=== PATIENT | female | born 1955 | race Caucasian/White ===

== ENCOUNTER 2018-10-08 19:05 | Inpatient (IN) | payer MEDICARE ==
[~2018-10-08] VITALS: Ht 162.6 cm; Wt 58.1 kg
--- NOTE | 2018-10-08 19:30 | NUR ---
GPS-BEHAVIOUR SUPPORT TEACHER NOTES: ADMITTED A 62 YR-OLD FEMALE FROM [facility]. ADMITTED ON 5150 FOR DTS. PER HOLD, PATIENT HAS OVERDOSED ON HER MEDICATIONS AND LEFT A SUICIDE NOTE. PT. STATED "I HAVE BEEN DEPRESSED SINCE I WAS 18 Y/O. I WANTED TO . I WANTED TO BE WITH MY DOG" UPON FACE TO FACE ASSESSMENT, PATIENT IS ALERT, ORIENTED X3, CALM, COOPERATIVE WITH CARE, DEPRESSED MOOD, AMBULATES WITH WALKER. DENIES SI/HI OR HALLUCINATIONS AT THIS TIME. IN NO APPARENT DISTRESS NOTED. NO C/O PAIN OR DISCOMFORT AT THIS TIME. BELONGINGS WERE INVENTORIED AND CHECKED FOR CONTRABAND. PT. IS UNDER THE PSYCHIATRIC CARE OF DR. CHAHAL ORDERS OBTAINED, AND UNDER THE MEDICAL CARE OF DR. ARZATE, [facility], SPOKE WITH DR. GONZALEZ NOTIFIED OF THE ADMISSION AND MEDS TO RECONCILE. SKIN ASSESSMENT DONE. BED LOCKED AND PLACED ON LOWEST POSITION TO MAINTAIN SAFETY. FALL PRECAUTIONS IMPLEMENTED. WILL CONTINUE TO MONITOR Q15 MINS. FOR SAFETY AND BEHAVIOR.
[2018-10-08 20:00] VITALS: BP_SYST 130; BP_SYST 150; BP_DIAS 72
[2018-10-08 20:10] VITALS: BP 130/72
[2018-10-08] MEDS ORDERED: MAG HYDROX/AL HYDROX/SIMETH 30 ML UDC PO PRN (21:00)
[2018-10-08] MEDS ORDERED: ACETAMINOPHEN 325 MG TABLET PO PRN (21:00)
[2018-10-08] MEDS ORDERED: LORAZEPAM 1 MG TABLET PO PRN (21:00)
[2018-10-08] MEDS ORDERED: BETA1BEA PO (21:05)
[2018-10-08] MEDS ORDERED: BETA10003 PO (21:11)
[2018-10-08] MEDS ORDERED: CALC-903 PO (21:14)
[2018-10-08] MEDS ORDERED: ESCI10TA PO (21:15)
[2018-10-08] MEDS ORDERED: ASCO1TAB13 PO (21:17)
[2018-10-08] MEDS ORDERED: EVEP1CAP PO (21:19)
[2018-10-08] MEDS ORDERED: FAMO20TA8 PO (21:20)
[2018-10-08] MEDS ORDERED: FLAX100031 PO (21:22)
[2018-10-08] MEDS ORDERED: MAGN400T6 PO (21:25)
[2018-10-08] MEDS ORDERED: [UNRECOGNIZED DRUG - CODE] PO (21:27)
[2018-10-08] MEDS ORDERED: CHOL200026 PO (21:28)
[2018-10-08] MEDS ORDERED: DICL100G16 TP (21:35)
[2018-10-08] MEDS ORDERED: ZINC50TA65 PO (21:36)
[2018-10-08] MEDS ORDERED: BISA-79 PR (21:39)
[2018-10-08] MEDS ORDERED: DIAZ5TAB4 PO (21:40)
[2018-10-08] MEDS ORDERED: DIPH25CA83 PO (21:42)
[2018-10-08] MEDS ORDERED: IBUP-1957 PO (21:44)
[2018-10-08] MEDS ORDERED: TRAM50TA2 PO (21:45)
[2018-10-08] MEDS ORDERED: VIT1TABL81 PO (21:51)
[2018-10-08] MEDS ORDERED: HYDR453.3 TP (21:53)
[2018-10-08] MEDS ORDERED: LORAZEPAM 0.5 MG TABLET PO PRN (22:00)
[2018-10-09] MEDS: TEMAZEPAM 7.5 MG CAPSULE PO PRN (01:23)
--- NOTE | 2018-10-09 05:44 | NUR ---
GPS RN NOTE, PATIENT HAS A COMPLAINT OF LOWER BACK PAIN AT 8 OUT 10 ON THE PAIN SCALE AND IS REQUESTING TRAMADOL AT THIS TIME. PAGED [facility] AND INFORMED DR ESCOTO OF MY FINDINGS. DR ECSOTO ORDERED TO GIVE TRAMADOL 50 MG PO Q8HR PRN. ALL ORDERS NOTED AND CARRIED OUT. WILL CONTINUE TO MONITOR THIS PATIENT.
[2018-10-09] MEDS ORDERED: TRAMADOL HCL 50 MG TABLET PO PRN (06:00)
[2018-10-09] MEDS ORDERED: IBUPROFEN 800 MG TABLET PO PRN (06:00)
[2018-10-09 08:00] VITALS: BP 133/59
[2018-10-09 08:02] LABS: BASOPHILS # (AUTO) 0.1 /CMM (0.0-0.2); BASOPHILS % (AUTO) 1.4 % (0.0-2.0); EOSINOPHILS % (AUTO) 3.9 % (0.0-6.0); HEMATOCRIT 28 % (33-45); HEMOGLOBIN 9.5 g/dL (11.5-14.8); LYMPHOCYTES # (AUTO) 1.5 /CMM (0.8-4.8); LYMPHOCYTES % (AUTO) 28.9 % (20.0-44.0); MEAN CORPUSCULAR HGB CONC 34 g/dl (31.0-36.0); MEAN CORPUSCULAR VOLUME 82 fL (82-100); MONOCYTES # (AUTO) 0.4 /CMM (0.1-1.30); MONOCYTES % (AUTO) 7.8 % (2.0-12.0); PLATELET COUNT (AUTO) 425 /CMM (150-450); RED BLOOD CELL COUNT(AUTO) 3.44 MIL/uL (4.0-5.2); WHITE BLOOD COUNT (AUTO) 5.1 K/uL (4.3-11.0)
[2018-10-09 08:14] LABS: BILIRUBIN,TOTAL 0.3 mg/dL (0.2-1.0); CREATININE 0.6 mg/dL (0.6-1.3); TOTAL PROTEIN, SERUM 6.1 g/dL (6.4-8.2)
[2018-10-09] MEDS ORDERED: Medication Not On Formulary EA (Zinc Amino Acid Chelate (Zinc) 50 MG) PO SCH (09:00)
[2018-10-09] MEDS ORDERED: METHYLSULFONYLMETHANE PO SCH (09:00)
[2018-10-09] MEDS: CALCIUM CARBONATE (1250) 500 MG TABLET PO SCH (09:28)
[2018-10-09] MEDS: FAMOTIDINE (20 MG) 20 MG TABLET PO SCH ×2 (09:28→17:19)
--- NOTE | 2018-10-09 09:34 | NUR ---
WOUND CARE CONSULT: PT PRESENTS WITH RASH TO INNER THIGHS, PERINEAL AND GROIN AREAS, WELL BRUISES TO LEFT FACE AND EXTREMITIES, PRESENT ON ADMISSION. RECOMMENDATIONS MADE FOR SKIN CARE AND PROTECTION. DISCUSSED WITH NURSING STAFF. PT IS AMBULATORY AND CONTINENT. WILL SEE PRN. CURRENT MARTINA SCORE IS 19. MD IN AGREEMENT WITH PLAN OF CARE. Addendum: 10/09/18 at 0936 by CALEB WOMACK WNDNU Amended: Links added.
[2018-10-09] MEDS ORDERED: Z GUARD REMEDY 2 OZ OINT TP PRN (10:00)
[2018-10-09] MEDS: IBUPROFEN 400 MG TABLET PO PRN (10:17)
[2018-10-09] MEDS: CHOLECALCIFEROL 1,000 UNIT TABLET (VIT D3) PO SCH (11:04)
[2018-10-09] MEDS: CLOTRIMAZOLE 1% 15 GM TUBE TP SCH ×2 (11:04→17:25)
[2018-10-09] MEDS: Z GUARD REMEDY 2 OZ OINT TP SCH (11:05)
--- NOTE | 2018-10-09 11:40 | NUR ---
SW called the pt's , Kunal ([phone]), and informed him that the SW would like to discuss the discharge plan. The SW stated that she would like to set the pt up with outpatient services in terms of therapy or psychiatry so that the pt can have that extra support. Pt's agreed and stated that the pt would benefit from that. SW stated that she would provide the pt's with updates.
--- NOTE | 2018-10-09 12:37 | NUR ---
Initial Discharge Plan: Pt currently resides in her home with her located at [address] [place] [address], [place] [address]; ([phone]). Per pt, she would like to return to her home and her , Kunal ([phone]), stated that she does have a support system in place. PAULETTE will work with the pt and the MD regarding appropriate discharge planning. SW will form a safe and proper discharge plan.
[2018-10-09] MEDS: TRAMADOL HCL 50 MG TABLET PO PRN ×2 (14:05→21:53)
[2018-10-09 16:00] VITALS: BP 153/79
[2018-10-09 20:00] VITALS: BP 135/84
--- NOTE | 2018-10-09 20:44 | NUR ---
GPS/RN DR. CHAHAL IS HERE SPOKE TO THE PATIENT.
--- NOTE | 2018-10-09 21:00 | NUR ---
GPS RN NOTE, PATIENT HAS A COMPLAINT THAT SHE WOULD LIKE TO START TAKING GABAPENTIN 100MG PO TID FOR HER FIBROMYALGIA. PAGED [facility] AND INFORMED DR ESCOTO OF MY FINDINGS. DR ESCOTO INSTRUCTED ME TO ENDORSE THIS COMPLAINT TO AM SHIFT NURSE AND AM SHIFT ROUNDING MEDICAL DOCTOR. WILL CONTINUE TO MONITOR THIS PATIENT.
[2018-10-09] MEDS: TRAZODONE 50 MG TABLET PO SCH (21:49)
[2018-10-09] MEDS: BISACODYL (5 MG) 5 MG TABLET.DR PO PRN (22:55)
[2018-10-10] MEDS ORDERED: GABA-532 PO (02:50)
[2018-10-10 08:00] VITALS: BP 112/69
[2018-10-10] MEDS: CALCIUM CARBONATE (1250) 500 MG TABLET PO SCH (08:20)
[2018-10-10] MEDS: CHOLECALCIFEROL 1,000 UNIT TABLET (VIT D3) PO SCH (08:20)
[2018-10-10] MEDS: FAMOTIDINE (20 MG) 20 MG TABLET PO SCH ×2 (08:20→17:05)
[2018-10-10] MEDS: CLOTRIMAZOLE 1% 15 GM TUBE TP SCH ×2 (08:21→17:26)
[2018-10-10] MEDS: MAGNESIUM OXIDE 400 MG TABLET PO SCH (08:22)
[2018-10-10] MEDS: TRAMADOL HCL 50 MG TABLET PO PRN ×2 (08:34→17:05)
[2018-10-10] MEDS: Z GUARD REMEDY 2 OZ OINT TP SCH (09:05)
--- NOTE | 2018-10-10 09:30 | NUR ---
Pt spoke to the SW and stated that she has concerns about her medical condition and that she would like to speak to the MD. SW stated that she would inform the nurses when her MD comes to the unit to speak to her at length and address her concerns.
[2018-10-10] MEDS: MAGNESIUM HYDROXIDE 30 ML UDC PO PRN (15:49)
[2018-10-10 16:00] VITALS: BP 136/91
[2018-10-10] MEDS: GABAPENTIN 100 MG CAPSULE PO SCH (17:05)
--- NOTE | 2018-10-10 19:55 | NUR ---
RN INITIAL NOTES: RECEIVED IN BED, A/O X3, CALM AND MED COMPLIANT, ON PAIN MEDS Q8HRS PRN, AMBULATES WITH WALKER, WOULD LIKE TO SPEAK WITH DR CHAHAL REGARDING TRAZODONE. PT DENIES ANY SI/HI. VS TAKEN AND RECORDED. SAFETY PRECAUTIONS FOR FALL INITIATED, BED BRAKES ENGAGED, SIDE RAILS UP X2, WILL CONTINUE TO MONITOR [id number] FOR SAFETY AND ANY CHANGES IN BEHAVIOR
[2018-10-10 20:00] VITALS: BP 125/78
--- NOTE | 2018-10-10 20:57 | NUR ---
RN NOTES: SEEN BY MD DR CHAHAL, ASK PT WOULD LIKE TO TALK ABOUT TRAZODONE, DISCUSSED ABOUT MEDICATION AT BED SIDE
[2018-10-10] MEDS: TRAZODONE 50 MG TABLET PO SCH (21:13)
[2018-10-10] MEDS: BISACODYL (5 MG) 5 MG TABLET.DR PO PRN (21:18)
--- NOTE | 2018-10-10 21:18 | NUR ---
prn dulcolax: pt c/o constipation requesting dulcolax, prn dulcolax 10 mg tab administered at this time
[2018-10-11] MEDS: TRAMADOL HCL 50 MG TABLET PO PRN ×3 (06:38→23:09)
--- NOTE | 2018-10-11 06:39 | NUR ---
PRN ULTRAM: PT C/O GENERALIZED PAIN 02/21 PS, REQUESTING FOR ULTRAM, PRN ULTRAM 50 MG TAB ADMINISTERED AT THIS TIME, WILL CONTINUE TO MONITOR AND REASSESS
[2018-10-11 08:00] VITALS: BP 107/59
[2018-10-11] MEDS: FAMOTIDINE (20 MG) 20 MG TABLET PO SCH ×2 (08:48→16:29)
[2018-10-11] MEDS: CALCIUM CARBONATE (1250) 500 MG TABLET PO SCH (08:48)
[2018-10-11] MEDS: CHOLECALCIFEROL 1,000 UNIT TABLET (VIT D3) PO SCH (08:48)
[2018-10-11] MEDS: GABAPENTIN 100 MG CAPSULE PO SCH ×3 (08:48→16:29)
[2018-10-11] MEDS: MAGNESIUM OXIDE 400 MG TABLET PO SCH (08:48)
[2018-10-11] MEDS: Z GUARD REMEDY 2 OZ OINT TP SCH (08:49)
[2018-10-11] MEDS: CLOTRIMAZOLE 1% 15 GM TUBE TP SCH ×2 (08:50→16:29)
[2018-10-11] MEDS: IBUPROFEN 400 MG TABLET PO PRN (09:26)
[2018-10-11 16:00] VITALS: BP 128/66
[2018-10-11] MEDS: MAGNESIUM HYDROXIDE 30 ML UDC PO PRN (16:29)
[2018-10-11 20:00] VITALS: BP 145/73
[2018-10-11] MEDS: TRAZODONE 50 MG TABLET PO SCH (21:14)
[2018-10-11] MEDS: BISACODYL (5 MG) 5 MG TABLET.DR PO PRN (21:49)
[2018-10-11] MEDS: TEMAZEPAM 7.5 MG CAPSULE PO PRN (22:43)
[2018-10-12 08:00] VITALS: BP 135/75
[2018-10-12] MEDS: CALCIUM CARBONATE (1250) 500 MG TABLET PO SCH (08:50)
[2018-10-12] MEDS: GABAPENTIN 100 MG CAPSULE PO SCH ×3 (08:50→17:39)
[2018-10-12] MEDS: TRAMADOL HCL 50 MG TABLET PO PRN ×2 (08:50→17:42)
[2018-10-12] MEDS: FAMOTIDINE (20 MG) 20 MG TABLET PO SCH ×2 (08:50→17:39)
[2018-10-12] MEDS: CHOLECALCIFEROL 1,000 UNIT TABLET (VIT D3) PO SCH (08:50)
[2018-10-12] MEDS: MAGNESIUM OXIDE 400 MG TABLET PO SCH (08:50)
[2018-10-12] MEDS: Z GUARD REMEDY 2 OZ OINT TP SCH (08:51)
[2018-10-12] MEDS: CLOTRIMAZOLE 1% 15 GM TUBE TP SCH ×2 (08:52→17:39)
[2018-10-12] MEDS ORDERED: BISACODYL SUPP (10 MG) 10 MG/SUPP.RECT SUPP.RECT RC PRN (12:30)
[2018-10-12] MEDS: IBUPROFEN 400 MG TABLET PO PRN (13:00)
[2018-10-12 16:00] VITALS: BP 115/73
[2018-10-12] MEDS: SAVELLA 50MG TAB PO SCH (17:39)
[2018-10-12 20:36] VITALS: BP 122/76
[2018-10-12] MEDS: TEMAZEPAM 7.5 MG CAPSULE PO PRN (20:49)
[2018-10-13] MEDS: TRAMADOL HCL 50 MG TABLET PO PRN ×2 (06:03→14:58)
[2018-10-13 08:00] VITALS: BP 132/69
[2018-10-13] MEDS: CHOLECALCIFEROL 1,000 UNIT TABLET (VIT D3) PO SCH (09:30)
[2018-10-13] MEDS: CALCIUM CARBONATE (1250) 500 MG TABLET PO SCH (09:31)
[2018-10-13] MEDS: FAMOTIDINE (20 MG) 20 MG TABLET PO SCH ×2 (09:31→16:33)
[2018-10-13] MEDS: CLOTRIMAZOLE 1% 15 GM TUBE TP SCH ×2 (09:31→16:34)
[2018-10-13] MEDS: Z GUARD REMEDY 2 OZ OINT TP SCH (09:31)
[2018-10-13] MEDS: GABAPENTIN 100 MG CAPSULE PO SCH ×3 (09:31→16:32)
[2018-10-13] MEDS: MAGNESIUM OXIDE 400 MG TABLET PO SCH (09:31)
[2018-10-13] MEDS: SAVELLA 50MG TAB PO SCH ×2 (10:49→16:33)
--- NOTE | 2018-10-13 14:32 | NUR ---
SW spoke to the pt regarding an outpatient program that could assist her with her psychiatric needs as well as her therapeutic needs. Pt stated that she has had trouble with many individuals in her support system such as her , her best friend, and her 's sisters. Pt stated that she did not want to take her life but she wanted people to care for her. SW stated that she made a serious attempt and therefore she needs to be evaluated for her safety. SW then explained the benefits of going to an outpatient program and the pt stated that she would accept a program.
--- NOTE | 2018-10-13 14:37 | NUR ---
PAULETTE faxed a referral to [facility] with attention to Darshana to the fax number: [phone].
[2018-10-13 16:00] VITALS: BP 128/58
[2018-10-13 20:13] VITALS: BP 118/69
[2018-10-13 20:18] VITALS: BP 118/69
[2018-10-13] MEDS ORDERED: MIRTAZAPINE 15 MG TABLET PO SCH (22:00)
[2018-10-14 08:00] VITALS: BP 112/59
[2018-10-14] MEDS: GABAPENTIN 100 MG CAPSULE PO SCH ×3 (09:32→17:36)
[2018-10-14] MEDS: CHOLECALCIFEROL 1,000 UNIT TABLET (VIT D3) PO SCH (09:32)
[2018-10-14] MEDS: CALCIUM CARBONATE (1250) 500 MG TABLET PO SCH (09:32)
[2018-10-14] MEDS: MAGNESIUM OXIDE 400 MG TABLET PO SCH (09:32)
[2018-10-14] MEDS: FAMOTIDINE (20 MG) 20 MG TABLET PO SCH ×2 (09:32→17:36)
[2018-10-14] MEDS: SAVELLA 50MG TAB PO SCH ×2 (09:33→17:36)
[2018-10-14] MEDS: Z GUARD REMEDY 2 OZ OINT TP SCH (09:35)
[2018-10-14] MEDS: CLOTRIMAZOLE 1% 15 GM TUBE TP SCH ×2 (09:35→17:37)
[2018-10-14] MEDS: IBUPROFEN 400 MG TABLET PO PRN ×2 (09:37→14:38)
--- NOTE | 2018-10-14 12:22 | NUR ---
SW conducted a substance abuse intervention with the pt due to her overdosing on her prescription medications.
--- NOTE | 2018-10-14 12:24 | NUR ---
SW spoke to the pt in her room about the [facility] and stated that the SW called the program and the director was not available so the SW was informed to call again. Pt began speaking to the SW about how she was not serious about the attempt that she made on her life and that the pt just wanted to get her 's attention and have him care for her appropriately. SW suggested that the pt and her receive marriage counseling together to work on their relationship issues.
--- NOTE | 2018-10-14 15:26 | NUR ---
PAULETTE called Darshana ([phone]) from the [facility] and she stated that the pt is accepted to the program once she is discharged.
[2018-10-14 16:00] VITALS: BP 136/57
[2018-10-14] MEDS: TRAMADOL HCL 50 MG TABLET PO PRN (17:57)
[2018-10-14] MEDS ORDERED: VOLTAREN TP PRN (18:00)
--- NOTE | 2018-10-14 19:54 | NUR ---
GPS/RN PER PATIENT TRAMADOL DID NOT HELP HER PAIN, HER PAIN IS STILL 10/10 AT THIS TIME AND ASKED FOR HER VOLTAREN GEL. MED WAS GIVEN, SHE APPLIED THE GEL HERSELF SHE KNOWS WHERE TO APPLY, SHE STATED. WILL MONITOR.
[2018-10-14 19:55] VITALS: BP 113/52
--- NOTE | 2018-10-14 20:05 | NUR ---
GPS RN NOTE, DR CHAHAL ON FLOOR AND IN PATIENT ROOM TO SEE PATIENT. PATIENT HAS A COMPLAINT THAT SHE WOULD LIKE TO TAKE TRAZODONE [address] CHAHAL INFORMED PATIENT THAT TRAZODONE AND SAVELLA INTERACT AND SHE WOULD NEED TO STOP TAKING SAVELLA 50 MG PO BID. PATIENT IS AGREEABLE AND STATES, " I WOULD RATHER TAKE TRAZODONE INSTEAD OF SAVELLA ". DR CHAHAL GAVE ORDER TO CALL MEDICAL MD AND TO HAVE SAVELLA 50 MG PO BID DISCONTINUED. PAGED [facility] AND INFORMED DR ARACELI FOLEY OF MY FINDINGS. DR ARACELI FOLEY ORDERED TO STOP SAVELLA 50MG PO BID AND ORDERED TO GIVE NORCO 5-325 1 TAB PO Q6HR PRN. ALL ORDERS NOTED AND CARRIED OUT. WILL CONTINUE TO MONITOR THIS PATIENT.
--- NOTE | 2018-10-14 20:40 | NUR ---
MS/RN PATIENT WAS SEEN BY DR. CHAHAL EARLIER AROUND 1954.
[2018-10-14] MEDS: TRAZODONE 50 MG TABLET PO SCH (21:15)
[2018-10-14] MEDS ORDERED: HOME MED MISCELLANEOUS XX PRN (21:30)
[2018-10-15] MEDS ORDERED: VOLTAREN TP PRN (05:00)
[2018-10-15] MEDS: TRAMADOL HCL 50 MG TABLET PO PRN ×3 (06:09→21:31)
[2018-10-15 08:00] VITALS: BP 124/60
[2018-10-15] MEDS: GABAPENTIN 100 MG CAPSULE PO SCH ×3 (08:23→16:22)
[2018-10-15] MEDS: CHOLECALCIFEROL 1,000 UNIT TABLET (VIT D3) PO SCH (08:23)
[2018-10-15] MEDS: MAGNESIUM OXIDE 400 MG TABLET PO SCH (08:23)
[2018-10-15] MEDS: CALCIUM CARBONATE (1250) 500 MG TABLET PO SCH (08:23)
[2018-10-15] MEDS: FAMOTIDINE (20 MG) 20 MG TABLET PO SCH ×2 (08:23→16:19)
[2018-10-15] MEDS: Z GUARD REMEDY 2 OZ OINT TP SCH (08:29)
[2018-10-15] MEDS: CLOTRIMAZOLE 1% 15 GM TUBE TP SCH ×2 (08:29→16:22)
[2018-10-15] MEDS: HYDROCODONE/APAP 5/325MG 1 EACH TABLET PO PRN ×2 (08:49→16:19)
--- NOTE | 2018-10-15 09:00 | NUR ---
GPS RN NOTE: PT COMPLAINING OF RIGHT HIP PAIN / NORCO 5/235 MG GIVEN PER ORDER, WILL CONTINUE MONITORING .
[2018-10-15] MEDS ORDERED: KETOROLAC TROMETHAMINE INJ 30 MG/ML VIAL IM PRN (10:00)
--- NOTE | 2018-10-15 11:25 | NUR ---
GPS RN NOTE: PT COMPLAINING OF RIGHT HIP PAIN 03/24 TORADOL INJ 15 MG PRN GIVEN PER ORDER, WILL CONTINUE MONITORING .
--- NOTE | 2018-10-15 14:53 | NUR ---
GPS/RN PER PATIENT C/O PAIN 8/10 TRAMADOL 50 MG PO GIVEN WILL CONTINUE MONITORING.
[2018-10-15 16:00] VITALS: BP 134/88
[2018-10-15 20:14] VITALS: BP 120/57
[2018-10-15] MEDS: TRAZODONE 50 MG TABLET PO SCH (21:31)
[2018-10-15] MEDS: TEMAZEPAM 7.5 MG CAPSULE PO PRN (21:32)
[2018-10-16 08:00] VITALS: BP 117/59
[2018-10-16] MEDS: CHOLECALCIFEROL 1,000 UNIT TABLET (VIT D3) PO SCH (08:56)
[2018-10-16] MEDS: GABAPENTIN 100 MG CAPSULE PO SCH ×3 (08:56→17:03)
[2018-10-16] MEDS: CALCIUM CARBONATE (1250) 500 MG TABLET PO SCH (08:56)
[2018-10-16] MEDS: FAMOTIDINE (20 MG) 20 MG TABLET PO SCH ×2 (08:56→17:03)
[2018-10-16] MEDS: CLOTRIMAZOLE 1% 15 GM TUBE TP SCH ×2 (08:57→17:03)
[2018-10-16] MEDS: Z GUARD REMEDY 2 OZ OINT TP SCH (08:57)
[2018-10-16] MEDS: MAGNESIUM OXIDE 400 MG TABLET PO SCH (09:01)
[2018-10-16] MEDS ORDERED: KETOROLAC TROMETHAMINE 15 MG/ML VIAL IM PRN (11:00)
--- NOTE | 2018-10-16 12:23 | NUR ---
PAULETTE called the pt's , Kunal ([phone]), and informed him that the pt is going to be discharged from the hospital today. He stated that he works 2 jobs and would not be able to pick the pt up until around 9:30PM. PAULETTE stated that was acceptable and stated she would plan the discharge accordingly.
--- NOTE | 2018-10-16 12:24 | NUR ---
PAULETTE called aDrshana ([phone]) from the [facility] and informed her that the pt is being discharged today and that she can start the program the following day. She stated that would be acceptable and that she would like the most recent discharge paperwork to be faxed over.
--- NOTE | 2018-10-16 12:28 | NUR ---
APULETTE faxed the discharge notes to [facility] with attention to Darshana to the fax number: [phone].
[2018-10-16] MEDS: HYDROCODONE/APAP 5/325MG 1 EACH TABLET PO PRN (14:05)
--- NOTE | 2018-10-16 15:27 | NUR ---
Discharge Note: Pt was discharged home located at [address] [facility], [address] [address]; ([phone]). Pt was picked up by the pts , Kunal ([phone]), at 9:30PM. On the afternoon of the pts discharge, she appeared to be in a euthymic mood and presented with a calm and pleasant affect. Pt denied both suicidal and homicidal ideation as well as both visual and auditory hallucinations. Pt was provided with three substance abuse referrals at the time of discharge. Pt was also referred to the [facility] where the pt will be under the care of her psychiatrist, Dr. Lai, located [address] [place] [address]; . She will start the program on Saturday, October 20 at 10AM. Pt will also be under the care of her quality engineer medical device, Dr. Margie Blanc, located at [address], [place] [address]; .
[2018-10-16 16:00] VITALS: BP 136/55
[2018-10-16] MEDS: IBUPROFEN 400 MG TABLET PO PRN (20:04)
--- NOTE | 2018-10-16 21:31 | NUR ---
DISCHARGE NOTES PT. DISCHARGE HOME WITH HER IN STABLE CONDITION, NO ACUTE DISTRESS NOTED, DENIES SI/ HI AT THIS TIME , PT. BEHAVIOR PLASENT, CALM COOPERTIVE TO GO HOME , PT. DISCHARGE WITH ALL BELONGING AND DISCHARGE PAPERS. PROVIDE ALL DISCHARGE INSTRUCTIONS, PT. VERBALIZED TO UNDERSTANDING , VITAL SIGNS WNL.PT. ACCOMPIENDE BY STAFF MEMEBER WITH WHEEL CHAIR TO LOBBY .
== END 2018-10-16 21:30 | disposition home or self-care (01) | DRG 885 ==
LOC: GPS 19:05
PROVIDERS: ADMIT Psychiatry & Neurology Psychiatry; ATTEND Psychiatry & Neurology Psychiatry
DX: F29 Unspecified psychosis not due to a substance or known physiological condition (principal); E44.1 Mild protein-calorie malnutrition; F41.9 Anxiety disorder, unspecified; T50.902D Poisoning by unspecified drugs, medicaments and biological substances, intentional self-harm, subsequent encounter; M79.7 Fibromyalgia; Z90.13 Acquired absence of bilateral breasts and nipples; Z85.3 Personal history of malignant neoplasm of breast; Z80.3 Family history of malignant neoplasm of breast; D63.8 Anemia in other chronic diseases classified elsewhere; M54.31 Sciatica, right side; R05 Cough
CPT/HCPCS: 36415; 80053-TC; 80061-TC; 83735-TC; 85025-TC; 87081-TC; J1885

== ENCOUNTER 2025-02-02 10:10 | Outpatient (CLI) | payer OTHER ==
[~2025-02-02 10:10] MED LIST: ASCO1TAB13 PO; BETA10003 PO; BISA-79 PR; CALC-903 PO; CHOL200026 PO; DIAZ5TAB4 PO; DICL100G16 TP; DIPH25CA83 PO; ESCI10TA PO; EVEP1CAP PO; FAMO20TA8 PO; FLAX100031 PO; GABA-532 PO; HYDR453.3 TP; IBUP-1957 PO; MAGN400T8 PO; TRAM50TA2 PO; VIT1TABL81 PO; ZINC50TA65 PO; [UNRECOGNIZED DRUG - CODE] PO
== END 2025-02-02 23:59 | disposition home or self-care (01) ==
LOC: WOU 10:10
PROVIDERS: ATTEND Student in an Organized Health Care Education/Training Program
DX: T85.42XA Displacement of breast prosthesis and implant, initial encounter (principal); Y81.2 Prosthetic and other implants, materials and accessory general- and plastic-surgery devices associated with adverse incidents; Y92.89 Other specified places as the place of occurrence of the external cause; M06.9 Rheumatoid arthritis, unspecified; R22.32 Localized swelling, mass and lump, left upper limb; Z85.3 Personal history of malignant neoplasm of breast; Z90.12 Acquired absence of left breast and nipple; Z79.899 Other long term (current) drug therapy; G89.29 Other chronic pain; M54.9 Dorsalgia, unspecified; Z88.6 Allergy status to analgesic agent; Z88.1 Allergy status to other antibiotic agents; Z88.8 Allergy status to other drugs, medicaments and biological substances
CPT/HCPCS: G0463